=== PATIENT | female | born 1975 | race Caucasian/White ===

== ENCOUNTER 2016-08-26 23:00 | Emergency (ER) | payer OTHER ==
[~2016-08-26] VITALS: Ht 165.1 cm; Wt 63.5 kg
--- NOTE | 2016-08-26 23:00 | NUR ---
Patient was BIBA and taken to bed 06 via gurney per EMS
[2016-08-26 23:09] VITALS: BP 130/56
--- NOTE | 2016-08-26 23:10 | NUR ---
41 Y/O F BIBA C/O ANXIETY, ETOH, WEAKNESS, UPSET, AND H/A. ALERT AND ORIENTED X 4 BUT SEEMS CONFUSED FOR MOMENTS D/T ETOH. AT BEDSIDE. ER MD DIAMONDA AWARE.
[2016-08-26] MEDS ORDERED: NACL 0.9% 1,000 ML IV ONE (23:15)
[2016-08-26] MEDS ORDERED: LORazepam 2 MG/ML VIAL IVP ONE (23:15)
[2016-08-26] MEDS ORDERED: ONDANSETRON 4 MG/2 ML VIAL IVP ONE (23:15)
[2016-08-26 23:46] LABS: ANION GAP 14.2 (8-16); CALCIUM 8.1 mg/dL (8.5-10.1); CARBON DIOXIDE 26.4 mmol/L (21-32); CHLORIDE 106 mmol/L (98-107); CREATININE 0.5 mg/dL (0.6-1.3); GFR ARICAN-AMERICAN 175 mL/min (>90); GFR NON ARICAN-AMERICAN 145 mL/min (>90); GLUCOSE 83 mg/dL (74-106); POTASSIUM 3.6 mmol/L (3.5-5.1); SODIUM SERUM 143 mmol/L (136-145); UREA NITROGEN, BLOOD 5 mg/dL (7-18)
[2016-08-26 23:54] LABS: ALANINE AMINOTRANSFERASE 80 U/L (12-78); ALBUMIN 3.3 g/dL (3.4-5.0); ALKALINE PHOSPHATASE 101 U/L (46-116); ASPARTATE AMINOTRANSFERASE 170 U/L (15-37); SALICYLATE 5.4 mg/dL (2.8-20.0); TOTAL BILIRUBIN 0.3 mg/dL (0.0-1.0); TOTAL PROTEIN, SERUM 8.4 g/dL (6.4-8.2)
[2016-08-26 23:56] LABS: ACETAMINOPHEN < 0.5 ug/ml (10-30); ALCOHOL, BLOOD 401 mg/dL (<3)
[2016-08-27] LABS: HEMOGLOBIN 7.8 g/dL (12.0-16.0); MEAN CORPUSCULAR HEMOGLOBIN 20 pg (27-31); MEAN CORPUSCULAR HGB CONC 30 g/dL (33-37); MEAN CORPUSCULAR VOLUME 67 fL (80-94); PLATELET COUNT (AUTO) 134 K/uL (140-450); RED BLOOD CELL COUNT(AUTO) 3.89 MIL/uL (4.20-5.40); RED CELL DISTRIBUTION WIDTH 19.5 % (11.6-13.7); WHITE BLOOD COUNT (AUTO) 4.9 K/uL (4.8-10.8)
[2016-08-27 00:08] LABS: HYPOCHROMASIA 2+; LYMPHOCYTES % (MANUAL) 41 % (20-46); MONOCYTES % (MANUAL) 12 % (5-12); NEUTROPHILS % (MANUAL) 47 (43-65)
--- NOTE | 2016-08-27 00:45 | NUR ---
UNABLE TO COLLECT URINE FROM PT. INDIO AGRAWAL MADE AWARE.
[2016-08-27 00:55] VITALS: BP 97/64
--- NOTE | 2016-08-27 00:55 | NUR ---
Patient discharged with v/s stable. Written and verbal after care instructions given and explained. Patient alert, oriented and verbalized understanding of instructions. Wheel Chair Assisted with by caregiver. All questions addressed prior to discharge. ID band removed. Patient advised to follow up with PMD OR RETURN TO ER IF CONDITION WORSENS. Rx of ZOFRAN given. Patient educated on indication of medication including possible reaction and side effects. Opportunity to ask questions provided and answered.
== END 2016-08-27 00:55 | disposition home or self-care (01) ==
LOC: MED 23:00
DX: F10.129 Alcohol abuse with intoxication, unspecified (principal); R03.0 Elevated blood-pressure reading, without diagnosis of hypertension; F17.200 Nicotine dependence, unspecified, uncomplicated
CPT/HCPCS: 36415; 80053; 85025; 96361; 96374; 96375; 99284; G0480; G0482; J2060; J2405; J7030